=== PATIENT | male | born 1955 | race Caucasian/White ===

== ENCOUNTER 2021-08-06 09:33 | Day surgery (SDC) | payer OTHER ==
[~2021-08-06] VITALS: Ht 185.4 cm; Wt 107.6 kg
[~2021-08-06 09:33] MED LIST: ASCORBIC ACID500 MG PO; FINA5 PO; IBUP800 PO; L-Lysine500 M1 PO; LEVSOD137 PO; LISI20 PO; MAGNESIUM OXID500 MG PO; Natrol Alpha 3300 MG PO; PANT20 PO; TAMS.4ER PO; VALA500 PO; VITAMIN D310 MC4 PO
== END 2021-08-06 12:33 | disposition home or self-care (01) ==
LOC: ORSCSDS 09:33
PROVIDERS: Internal Medicine Gastroenterology
PROC: 0DJ08ZZ Inspection of Upper Intestinal Tract, Via Natural or Artificial Opening Endoscopic (ICD-10-PCS; principal; 2021-08-06 11:00)
PROC: 0DBC8ZX Excision of Ileocecal Valve, Via Natural or Artificial Opening Endoscopic, Diagnostic (ICD-10-PCS; principal; 2021-08-06 11:00)
DX: K21.9 Gastro-esophageal reflux disease without esophagitis (principal); Z12.11 Encounter for screening for malignant neoplasm of colon; Z85.038 Personal history of other malignant neoplasm of large intestine; Z15.09 Genetic susceptibility to other malignant neoplasm; D12.0 Benign neoplasm of cecum; K57.30 Diverticulosis of large intestine without perforation or abscess without bleeding; Z87.891 Personal history of nicotine dependence; I10 Essential (primary) hypertension; E03.9 Hypothyroidism, unspecified; Z79.899 Other long term (current) drug therapy
CPT/HCPCS: 88305; J2704; J7120

== ENCOUNTER 2024-12-16 10:26 | Day surgery (SDC) | payer OTHER ==
[~2024-12-16] VITALS: Ht 185.4 cm; Wt 121.2 kg
[~2024-12-16 10:26] MED LIST changes: +Lactated Ringer's 1,000 ML IV ONE; +propofoL 50 ML IV ONE
[2024-12-16] MEDS ORDERED: Aspir 8181 MG (11:56)
[2024-12-16] MEDS ORDERED: ATOR20 (11:57)
[2024-12-16] MEDS ORDERED: Lactated Ringer's 1,000 ML IV ONE (13:38)
[2024-12-16] MEDS ORDERED: Midazolam HCL 1 MG/ML 5MLVIAL ONE (14:39)
[2024-12-16] MEDS ORDERED: propofoL 50 ML IV ONE (15:04)
[2024-12-16] MEDS ORDERED: Ondansetron HCl 2 MG / ML 2ML Vial ONE ×2 (15:04→15:38)
[2024-12-16 16:15] VITALS: BP 116/81
== END 2024-12-16 16:05 | disposition home or self-care (01) ==
LOC: ORSCSDS 10:26
PROVIDERS: Internal Medicine Gastroenterology
PROC: 0DJ08ZZ Inspection of Upper Intestinal Tract, Via Natural or Artificial Opening Endoscopic (ICD-10-PCS; principal; 2024-12-16 12:15)
PROC: 0DBC8ZX Excision of Ileocecal Valve, Via Natural or Artificial Opening Endoscopic, Diagnostic (ICD-10-PCS; principal; 2024-12-16 12:15)
PROC: 0DBP8ZX Excision of Rectum, Via Natural or Artificial Opening Endoscopic, Diagnostic (ICD-10-PCS; principal; 2024-12-16 12:15)
PROC: 0DBE8ZX Excision of Large Intestine, Via Natural or Artificial Opening Endoscopic, Diagnostic (ICD-10-PCS; principal; 2024-12-16 12:15)
DX: R10.30 Lower abdominal pain, unspecified (principal); Z15.09 Genetic susceptibility to other malignant neoplasm; Z85.038 Personal history of other malignant neoplasm of large intestine; Z86.0101 Personal history of adenomatous and serrated colon polyps; K21.9 Gastro-esophageal reflux disease without esophagitis; K63.5 Polyp of colon; D12.8 Benign neoplasm of rectum; D12.6 Benign neoplasm of colon, unspecified; Z79.899 Other long term (current) drug therapy; Z87.891 Personal history of nicotine dependence
CPT/HCPCS: 88305; J2250; J2405; J2704; J7120